=== PATIENT | male | born 1950 | race Caucasian/White ===

== ENCOUNTER 2021-04-04 09:08 | Emergency (ER) | payer MEDICARE ==
[2021-04-04 11:06] LABS: CORONAVIRUS COVID-19 NAA POSITIVE (NEGATIVE)
== END 2021-04-04 11:19 | disposition home or self-care (01) ==
LOC: JP.ED 09:08
DX: U07.1 COVID-19 (principal); J12.82 Pneumonia due to coronavirus disease 2019; E11.9 Type 2 diabetes mellitus without complications
CPT/HCPCS: 0241U; 99284